=== PATIENT | male | born 1965 | race Caucasian/White ===

== ENCOUNTER 2021-09-14 19:21 | Inpatient (IN) | payer OTHER ==
[2021-09-14 19:40] VITALS: BMI 33.2
[2021-09-14] MEDS ORDERED: DICYCLOMINE HCL 10 MG CAPSULE PO PRN (20:33)
[2021-09-14] MEDS ORDERED: P-EPHED 60MG/TRIPROLIDI 2.5MG TABLET PO PRN (20:33)
[2021-09-14] MEDS ORDERED: NICOTINE POLACRILEX 2 MG GUM BUC PRN (20:33)
[2021-09-14] MEDS ORDERED: methaDONE HCL 10 MG TABLET (FOR DETOX USE ONLY) PO ONE (20:33)
[2021-09-14] MEDS ORDERED: ACETAMINOPHEN 325 MG TABLET (FP) PO PRN (20:33)
[2021-09-14] MEDS ORDERED: BISMUTH SUBSALICYLATE 524 MG/30 ML PO PRN (20:33)
[2021-09-14] MEDS ORDERED: MAGNESIUM CITRATE 300 ML BOTTLE PO PRN (20:33)
[2021-09-14] MEDS ORDERED: MAGNESIUM HYDROX 2400MG/30ML ORAL SUSPENSION 30 ML CUP PO PRN (20:33)
[2021-09-14] MEDS ORDERED: NALOXONE HCL 0.4 MG/ML VIAL IM PRN (20:33)
[2021-09-14] MEDS ORDERED: PROCHLORPERAZINE MALEATE 5 MG TABLET PO PRN (20:33)
[2021-09-14] MEDS ORDERED: MENTHOL/PHENOL 1 EACH UD MM PRN (20:33)
[2021-09-14] MEDS ORDERED: guaiFENesin 200 MG/10 ML 10 ML UNIT-DOSE CUPS PO PRN (20:33)
[2021-09-14] MEDS ORDERED: LOPERAMIDE HCL 2 MG CAPSULE PO PRN (20:33)
[2021-09-14] MEDS ORDERED: MELATONIN 5 MG TABLETS PO SCH (22:00)
[2021-09-14] MEDS: METHOCARBAMOL 500 MG TABLET PO PRN (22:33)
[2021-09-14] MEDS: cloNIDine HCL 0.1 MG TABLET PO PRN (22:33)
[2021-09-14] MEDS: diazePAM 5 MG TABLET PO SCH (22:33)
[2021-09-14] MEDS: THIAMINE HCL 100 MG TABLET (FP) PO SCH (22:33)
[2021-09-15] MEDS: diazePAM 5 MG TABLET PO SCH ×4 (06:30→22:16)
[2021-09-15] MEDS ORDERED: methaDONE HCL 10 MG TABLET (FOR DETOX USE ONLY) ONE (08:43)
[2021-09-15] MEDS: PRENATAL VITAMINS W/ FOLIC ACID TABLET (FP) PO SCH (10:35)
[2021-09-15] MEDS: NICOTINE 21 MG/24 HOURS TOPICAL PATCH TD SCH (10:36)
[2021-09-15] MEDS: METHOCARBAMOL 500 MG TABLET PO PRN (10:39)
[2021-09-15] MEDS: ACETAMINOPHEN 325 MG TABLET (FP) PO PRN (17:00)
[2021-09-15] MEDS: diazePAM 5 MG TABLET PO PRN (20:24)
[2021-09-15] MEDS: THIAMINE HCL 100 MG TABLET (FP) PO SCH (22:16)
[2021-09-15] MEDS: SUVOREXANT 5 MG TABLET PO PRN (22:17)
[2021-09-16 00:47] LABS: PH,URINE 5.5 (5.0-8.0); URINE APPEARANCE CLEAR; URINE BILIRUBIN NEGATIVE (NEGATIVE); URINE COLOR YELLOW; URINE GLUCOSE (UA) NEGATIVE (NEGATIVE); URINE KETONE NEGATIVE (NEGATIVE); URINE LEUK ESTERASE NEGATIVE (NEGATIVE); URINE NITRITE NEGATIVE (NEGATIVE); URINE PROTEIN NEGATIVE (NEGATIVE); URINE UROBILINOGEN 0.2 mg/dL (0.2-1.0)
[2021-09-16] MEDS: diazePAM 5 MG TABLET PO SCH ×3 (05:28→22:15)
[2021-09-16] MEDS: METHOCARBAMOL 500 MG TABLET PO PRN ×2 (05:28→17:22)
[2021-09-16] MEDS: IBUPROFEN 400 MG TABLET (FP) PO PRN (05:29)
[2021-09-16] MEDS: methaDONE HCL 10 MG TABLET (FOR DETOX USE ONLY) PO ONE ×2 (10:43→11:13)
[2021-09-16] MEDS: NICOTINE 21 MG/24 HOURS TOPICAL PATCH TD SCH (10:44)
[2021-09-16] MEDS: PRENATAL VITAMINS W/ FOLIC ACID TABLET (FP) PO SCH (10:44)
[2021-09-16] MEDS: diazePAM 5 MG TABLET PO PRN ×2 (15:23→19:28)
[2021-09-16] MEDS: cloNIDine HCL 0.1 MG TABLET PO PRN (17:22)
[2021-09-16] MEDS ORDERED: hydrOXYzine PAMOATE 50 MG CAPSULE (FP) PO ONE (18:31)
[2021-09-16] MEDS ORDERED: methaDONE HCL 10 MG TABLET PO ONE (19:13)
[2021-09-16] MEDS: THIAMINE HCL 100 MG TABLET (FP) PO SCH (22:14)
[2021-09-16] MEDS: SUVOREXANT 5 MG TABLET PO PRN (22:15)
[2021-09-17 00:06] LABS: SARS-CoV-2 NAA Not Detected (Not Detected)
[2021-09-17] MEDS: METHOCARBAMOL 500 MG TABLET PO PRN (01:29)
[2021-09-17] MEDS: IBUPROFEN 400 MG TABLET (FP) PO PRN ×2 (01:29→13:49)
[2021-09-17] MEDS: ACETAMINOPHEN 325 MG TABLET (FP) PO PRN ×2 (05:56→23:45)
[2021-09-17] MEDS: diazePAM 5 MG TABLET PO SCH ×2 (05:57→17:46)
[2021-09-17] MEDS: NICOTINE 21 MG/24 HOURS TOPICAL PATCH TD SCH (10:36)
[2021-09-17] MEDS: diazePAM 5 MG TABLET PO PRN ×2 (10:36→15:19)
[2021-09-17] MEDS: PRENATAL VITAMINS W/ FOLIC ACID TABLET (FP) PO SCH (10:36)
[2021-09-17] MEDS ORDERED: methaDONE HCL 10 MG TABLET (FOR DETOX USE ONLY) ONE (11:17)
[2021-09-17 14:35] LABS: HEMOGLOBIN 10.8 GM/dL (11.7-16.9); MCH 32.4 pg (25.7-33.7); MCHC 33.6 g/dl (32.0-35.9); MEAN CELL VOLUME 96.3 fl (80-96); MEAN PLT VOLUME 9.2 fl (7.5-11.1); PLATELET COUNT 71 10^3/uL (134-434); RBC 3.32 M/mm3 (4.00-5.60); RDW 15.7 % (11.9-15.9); WHITE BLOOD COUNT 3.7 K/mm3 (4.0-10.0)
[2021-09-17 14:54] LABS: CALCIUM 8.9 mg/dL (8.5-10.1)
[2021-09-17 14:55] LABS: ALBUMIN 3.4 g/dl (3.4-5.0); BLOOD UREA NITROGEN 18.8 mg/dL (7-18)
[2021-09-17 14:58] LABS: CREATININE 1.2 mg/dL (0.55-1.3)
[2021-09-17 14:59] LABS: BILIRUBIN,TOTAL 0.8 mg/dL (0.2-1); TOT PROT 6.4 g/dl (6.4-8.2)
[2021-09-17] MEDS: MAG HYDROX/AL HYDROX/SIMETH 30 ML UNIT-DOSE CUP PO PRN (20:30)
[2021-09-17] MEDS: THIAMINE HCL 100 MG TABLET (FP) PO SCH (22:23)
[2021-09-17] MEDS: SUVOREXANT 5 MG TABLET PO PRN (22:24)
[2021-09-18] MEDS ORDERED: diazePAM 5 MG TABLET PO ONE (06:00)
[2021-09-18] MEDS: PRENATAL VITAMINS W/ FOLIC ACID TABLET (FP) PO SCH (09:50)
[2021-09-18] MEDS: METHOCARBAMOL 500 MG TABLET PO PRN ×2 (09:50→18:35)
[2021-09-18] MEDS: MAG HYDROX/AL HYDROX/SIMETH 30 ML UNIT-DOSE CUP PO PRN (09:50)
[2021-09-18] MEDS: NICOTINE 21 MG/24 HOURS TOPICAL PATCH TD SCH (09:51)
[2021-09-18] MEDS ORDERED: methaDONE HCL 10 MG TABLET (FOR DETOX USE ONLY) PO ONE (10:00)
[2021-09-18] MEDS: SUVOREXANT 5 MG TABLET PO PRN (21:55)
[2021-09-18] MEDS: THIAMINE HCL 100 MG TABLET (FP) PO SCH (22:11)
[2021-09-18] MEDS ORDERED: cloNIDine HCL 0.1 MG TABLET PO ONE (23:17)
[2021-09-18] MEDS: ACETAMINOPHEN 325 MG TABLET (FP) PO PRN (23:17)
[2021-09-19] MEDS: METHOCARBAMOL 500 MG TABLET PO PRN ×2 (07:07→16:27)
[2021-09-19] MEDS: IBUPROFEN 400 MG TABLET (FP) PO PRN ×2 (07:07→16:27)
[2021-09-19] MEDS ORDERED: cloNIDine HCL 0.1 MG TABLET PO PRN (10:26)
[2021-09-19] MEDS: NICOTINE 21 MG/24 HOURS TOPICAL PATCH TD SCH (10:50)
[2021-09-19] MEDS: PRENATAL VITAMINS W/ FOLIC ACID TABLET (FP) PO SCH (10:50)
[2021-09-19] MEDS: diazePAM 5 MG TABLET PO PRN ×4 (11:03→22:16)
[2021-09-19] MEDS: hydrOXYzine PAMOATE 25 MG CAPSULE (FP) PO PRN ×3 (11:03→22:16)
[2021-09-19] MEDS: ACETAMINOPHEN 325 MG TABLET (FP) PO PRN (11:05)
[2021-09-19] MEDS: THIAMINE HCL 100 MG TABLET (FP) PO SCH (22:16)
[2021-09-19 22:59] VITALS: TEMP 97.3
[2021-09-20] MEDS: IBUPROFEN 400 MG TABLET (FP) PO PRN (01:46)
[2021-09-20 09:04] VITALS: BP 99/63; PULSE 78
== END 2021-09-20 09:05 | disposition home or self-care (01) | DRG 897 ==
LOC: YASAS 19:21 → Y3N 20:47
PROVIDERS: ADMIT Allergy & Immunology; ATTEND Allergy & Immunology
PROC: HZ2ZZZZ Detoxification Services for Substance Abuse Treatment (ICD-10-PCS; principal; 2021-09-14)
DX: F11.23 Opioid dependence with withdrawal (principal); F10.230 Alcohol dependence with withdrawal, uncomplicated; F12.20 Cannabis dependence, uncomplicated; F17.210 Nicotine dependence, cigarettes, uncomplicated; F19.24 Other psychoactive substance dependence with psychoactive substance-induced mood disorder; G47.00 Insomnia, unspecified; K74.60 Unspecified cirrhosis of liver; M54.59 Other low back pain; G89.29 Other chronic pain; R01.1 Cardiac murmur, unspecified; Z88.0 Allergy status to penicillin; Z87.820 Personal history of traumatic brain injury; Z86.19 Personal history of other infectious and parasitic diseases; Z56.0 Unemployment, unspecified
CPT/HCPCS: 36415; 71046-TC-FY; 80053; 81003; 85027; 86780; 87811; 93005; 93010; C9803-CS; J0735; U0003; U0005